=== PATIENT | female | born 1990 | race Caucasian/White ===

== ENCOUNTER 2017-03-22 21:12 | Emergency (ER) | payer SELFPAY ==
[2017-03-22 21:13] VITALS: BMI 29.6
[2017-03-22 23:06] VITALS: BP 121/80; PULSE 96; RESP 16; TEMP 99.2; O2SAT 99
[2017-03-22] MEDS ORDERED: Bacitracin 500 Units/gm Oint Foilpak UD ONE (23:10)
--- NOTE | 2017-03-22 23:17 | C.PDOC ---
History Of Present Illness 26 year old female presents to the ED with complaints of a loose nail after falling and injuring her left 4th finger nail yesterday. Patient denies any other area of trauma or complaints at this time. Time Seen by Provider: 03/22/17 21:59 Chief Complaint (Nursing): Upper Extremity Problem/Injury History Per: Patient History/Exam Limitations: no limitations Onset/Duration Of Symptoms: Hrs Current Symptoms Are (Timing): Still Present Past Medical History Reviewed: Historical Data, Nursing Documentation, Vital Signs Vital Signs: Last Vital Signs Temp 99.2 F 03/22/17 23:05 Pulse 96 H 03/22/17 23:05 Resp 16 03/22/17 23:05 BP 121/80 03/22/17 23:05 Pulse Ox 99 03/23/17 03:50 - [facility] Procedures EXTRACTION OF POC, LOW CERVICAL, OPEN APPROACH (12/06/16) LOW CERVICAL (03/13/15) Family History: States: No Known Family Hx - Social History Hx Tobacco Use: No Hx Alcohol Use: No Hx Substance Use: No - Immunization History Hx Tetanus Toxoid Vaccination: No Hx Influenza Vaccination: No Hx Pneumococcal Vaccination: No Review Of Systems Constitutional: Negative for: Fever, Chills Skin: Positive for: Other (loose 4th fingernail ). Negative for: Rash Physical Exam - Physical Exam Appears: Non-toxic, No Acute Distress Skin: Warm, Dry, No Rash, No Ecchymosis Head: Atraumatic Eye(s): bilateral: Normal Inspection Neck: Supple Gastrointestinal/Abdominal: No Distention Extremity: Normal ROM, No Tenderness, Capillary Refill (good capillary refill ) , No Deformity, Other (Lt 4th fingernail lose and deviated medially but attached at base and medial aspects) Neurological/Psych: Oriented x3 ED Course And Treatment O2 Sat by Pulse Oximetry: 99 (room air ) - Other Rad Left Hand X-Ray X-Ray: Viewed By Me, Read By Radiologist Interpretation: No fracture or dislocations to left hand Progress Note: Unable to clean or repair finger nail due to the patient's acrylic nail tip. Bacitracin dressing was applied to the finger and patient was instructed to keep finger clean and apply bacitracin and keep finger covered with a band aid Disposition Counseled Patient/Family Regarding: Diagnosis, Need For Followup - Disposition Referrals: Ailyn No MD [Provisional Staff] - Disposition: HOME/ ROUTINE Disposition Time: 23:13 Condition: STABLE Additional Instructions: Please apply bacitracin oint to finger Do not do any manicure to that finger Return to ER if worse Prescriptions: Cephalexin [cephalexin] 500 mg PO QID #20 cap Instructions: Nail Avulsion (ED) - Clinical Impression Clinical Impression: Nail avulsion, finger - Scribe Statement The provider has reviewed the documentation as recorded by the Scribmary grace Barnes All medical record entries made by the Madonnaibmary grace were at my direction and personally dictated by me. I have reviewed the chart and agree that the record accurately reflects my personal performance of the history, physical exam, medical decision making, and the department course for this patient. I have also personally directed, reviewed, and agree with the discharge instructions and disposition.
--- NOTE | 2017-03-23 13:24 | RAD ---
PROCEDURE: Left ring finger radiographs. HISTORY: pain distal left 2nd finger s/p fall COMPARISON: None. TECHNIQUE: AP radiograph of the left hand, as well as spot oblique and lateral images of left ring finger were obtained. FINDINGS: LEFT RING FINGER: Left ring finger normal, without fracture of focal lesion. Remainder of the left hand (as seen on the AP view) is grossly unremarkable. JOINTS: Normal. SOFT TISSUES: Normal. OTHER FINDINGS: None. IMPRESSION: No acute findings related to/accounting for the clinical presentation. Concordant results with the preliminary interpretation rendered by the emergency department physician procedure.
== END 2017-03-22 23:32 | disposition home or self-care (01) ==
LOC: C.ER 21:12
DX: S61.305A Unspecified open wound of left ring finger with damage to nail, initial encounter (principal); W19.XXXA Unspecified fall, initial encounter

== ENCOUNTER 2017-03-24 10:23 | Emergency (ER) | payer SELFPAY ==
[2017-03-24 10:24] VITALS: BMI 29.6
[2017-03-24 11:01] VITALS: BP 114/75; PULSE 74; RESP 18; TEMP 98; O2SAT 98
--- NOTE | 2017-03-24 11:36 | C.PDOC ---
History Of Present Illness 26 yo female c/o sore throat and pain with swallowing for 2 days. (+) body aches (+) fever (-) cough (-) congestion (-) SOB. Time Seen by Provider: 03/24/17 11:09 Chief Complaint (Nursing): ENT Problem History Per: Patient History/Exam Limitations: None Onset/Duration Of Symptoms: Days Current Symptoms Are (Timing): Still Present Quality (Mouth/Throat): Tenderness Past Medical History Vital Signs: Last Vital Signs Temp 98.0 F 03/24/17 10:57 Pulse 74 03/24/17 10:57 Resp 18 03/24/17 10:57 BP 114/75 03/24/17 10:57 Pulse Ox 98 03/24/17 11:36 - [facility] Procedures EXTRACTION OF POC, LOW CERVICAL, OPEN APPROACH (12/06/16) LOW CERVICAL (03/13/15) Family History: States: Unknown Family Hx - Social History Hx Tobacco Use: No Hx Alcohol Use: No Hx Substance Use: No - Immunization History Hx Tetanus Toxoid Vaccination: No Hx Influenza Vaccination: No Hx Pneumococcal Vaccination: No Review Of Systems Except As Marked, All Systems Reviewed And Found Negative. Constitutional: Positive for: Fever ENT: Positive for: Throat Pain Physical Exam - Physical Exam Appears: Well, Non-toxic, No Acute Distress Skin: Normal Color, Warm, Dry Head: Atraumatic, Normacephalic Eye(s): bilateral: Normal Inspection, PERRL, EOMI Ear(s): Bilateral: Normal Nose: Normal Oral Mucosa: Moist Throat: Erythema, Exudate, No Drooling, Other (uvula midline) Neck: Normal, Normal ROM, Supple Lymphatic: Adenopathy (cervical ) Chest: Symmetrical Cardiovascular: Rhythm Regular Respiratory: Normal Breath Sounds Back: Normal Inspection Extremity: Normal ROM Neurological/Psych: Oriented x3, Normal Speech ED Course And Treatment O2 Sat by Pulse Oximetry: 98 Progress Note: Instructed symptomatic treatment and out pt folow up with PMD in 1-2days. Isntructed to reutrn to ER if symptoms persit or worsen. Disposition - Disposition Referrals: [facility] [Outside] [facility] [Outside] Disposition: HOME/ ROUTINE Disposition Time: 11:34 Condition: STABLE Additional Instructions: Follow up with the clinic in 2-5 days for further evaluation. Take medications as prescribed. Return to the emergency department at any time if symptoms persist or worsen. You may call [facility] for any assistance . Prescriptions: Amoxicillin 875 mg PO BID #14 tablet Ibuprofen [Motrin] 600 mg PO Q6 PRN #20 tab PRN Reason: Pain, Mild (1-3) Mag&Al/Simet/Diphen/Lido [First Magic Mouthwash] 5 ml MM Q6 #1 kit Instructions: Pharyngitis (ED) - Clinical Impression Clinical Impression: Pharyngitis
== END 2017-03-24 11:40 | disposition home or self-care (01) ==
LOC: C.ER 10:23
DX: J02.9 Acute pharyngitis, unspecified (principal)

== ENCOUNTER 2017-08-13 10:45 | Emergency (ER) | payer OTHER, SELFPAY ==
[2017-08-13 10:46] VITALS: BMI 29.6
--- NOTE | 2017-08-13 11:37 | C.PDOC ---
History Of Present Illness 27 y/o female, with no significant PMHx, presents to ED for evaluation of lower abdominal, and back pain for the past week. Pt states that she recently had UTI. Denies fever, chills, n/v/d, dysuria, hematuria, frequency, or urinary retention. Notes she's breast feeding an 8month old child. No PMD Time Seen by Provider: 08/13/17 11:20 Chief Complaint (Nursing): Female Genitourinary History Per: Patient History/Exam Limitations: no limitations Onset/Duration Of Symptoms: Days Current Symptoms Are (Timing): Still Present Quality Of Discomfort: "Pain" Associated Symptoms: Back Pain. denies: Fever, Chills, Loss Of Appetite, Chest Pain, Constipation Alleviating Factors: None Recent travel outside of the [place]: No Additional History Per: Patient Past Medical History Reviewed: Historical Data, Nursing Documentation, Vital Signs Vital Signs: Last Vital Signs Temp 97.6 F 08/13/17 13:10 Pulse 65 08/13/17 13:10 Resp 18 08/13/17 13:10 BP 104/68 08/13/17 13:10 Pulse Ox 100 08/13/17 13:10 - [facility] Procedures EXTRACTION OF POC, LOW CERVICAL, OPEN APPROACH (12/06/16) LOW CERVICAL (03/13/15) Family History: States: Unknown Family Hx - Social History Hx Tobacco Use: No Hx Alcohol Use: No Hx Substance Use: No - Immunization History Hx Tetanus Toxoid Vaccination: No Hx Influenza Vaccination: No Hx Pneumococcal Vaccination: No Review Of Systems Except As Marked, All Systems Reviewed And Found Negative. Constitutional: Negative for: Fever, Chills Cardiovascular: Negative for: Chest Pain, Palpitations Respiratory: Negative for: Cough, Shortness of Breath Gastrointestinal: Positive for: Abdominal Pain. Negative for: Nausea, Vomiting , Diarrhea, Constipation Genitourinary: Negative for: Dysuria, Frequency, Hematuria, Vaginal Discharge Musculoskeletal: Positive for: Back Pain. Negative for: Neck Pain Neurological: Negative for: Weakness, Numbness Physical Exam - Physical Exam Appears: Non-toxic, No Acute Distress Skin: Warm, Dry, No Rash Head: Atraumatic, Normacephalic Eye(s): bilateral: Normal Inspection, EOMI Oral Mucosa: Moist Neck: Normal ROM, Supple Chest: Symmetrical Cardiovascular: Rhythm Regular, No Murmur Respiratory: Normal Breath Sounds, No Rales, No Rhonchi, No Wheezing Gastrointestinal/Abdominal: Soft, Tenderness (suprapubic), No Guarding, No Rebound Back: No CVA Tenderness, No Vertebral Tenderness, No Paraspinal Tenderness Extremity: Normal ROM, No Pedal Edema Extremity: Bilateral: Atraumatic Neurological/Psych: Oriented x3, Normal Speech, Normal Cognition ED Course And Treatment - Laboratory Results Result Diagrams: 08/13/17 11:44 08/13/17 11:44 Lab Interpretation: Normal Urine POC: Negative O2 Sat by Pulse Oximetry: 98 (RA) Pulse Ox Interpretation: Normal Progress Note: Blood work, UA ordered and reviewed. Patient was given Motrin for pain. Treated with macrobid 100 mg PO Reassessment Condition: Improved Medical Decision Making Medical Decision Making: On re-evaluation abdomen soft, in no distress lungs clear Disposition Counseled Patient/Family Regarding: Studies Performed, Diagnosis, Need For Followup, Rx Given - Disposition Referrals: [facility] [Outside] [facility] [Outside] Disposition: HOME/ ROUTINE Disposition Time: 12:30 Condition: STABLE Additional Instructions: Return to ED if any increase symptoms Prescriptions: Nitrofurantoin Macrocrystals [Macrobid] 1 cap PO BID #14 cap Instructions: Urinary Tract Infection in Women (ED) Forms: [facility] (Turkish) Print Language: TAMAZIGHT - Clinical Impression Clinical Impression: UTI (urinary tract infection) - PA / SUPERINTENDENT STEVEDORING / Resident Statement MD/DO has reviewed & agrees with the documentation as recorded. - Scribe Statement The provider has reviewed the documentation as recorded by the Hayden Wilkerson All medical record entries made by the Hayden were at my direction and personally dictated by me. I have reviewed the chart and agree that the record accurately reflects my personal performance of the history, physical exam, medical decision making, and the department course for this patient. I have also personally directed, reviewed, and agree with the discharge instructions and disposition.
[2017-08-13 11:48] LABS: BASO % 0.5 % (0.0-2.0); EOS # 0.2 K/uL (0.0-0.7); EOS % 2.1 % (0.0-4.0); HEMATOCRIT 38.8 % (34.0-47.0); LYMPH # 1.9 K/uL (1.0-4.3); LYMPH % 24.2 % (20.0-40.0); MEAN CORPUSCULAR HEMOGLOBIN 29.4 pg (27.0-31.0); MEAN CORPUSCULAR HGB CONC 34.2 g/dL (33.0-37.0); MEAN PLATELET VOLUME 9.3 fL (7.2-11.7); MONO # 0.5 K/uL (0.0-0.8); MONO % 6.5 % (0.0-10.0); RED CELL DISTRIBUTION WIDTH 13.3 % (11.5-14.5); WHITE BLOOD COUNT 7.8 K/uL (4.8-10.8)
[2017-08-13 11:59] LABS: CHLORIDE 100 mmol/L (98-107); POTASSIUM 3.7 mmol/L (3.6-5.2); SODIUM 140 mmol/L (132-148)
[2017-08-13 11:59] LABS: RBC URINE 1 /hpf (0-3); URINE BACTERIA RARE (<OCC); URINE BILIRUBIN NEGATIVE (NEGATIVE); URINE BLOOD 2+ (NEGATIVE); URINE COLOR Yellow (YELLOW); URINE GLUCOSE (UA) NORMAL (Normal); URINE KETONE NEGATIVE (NEGATIVE); URINE LEUKOCYTE ESTERASE 3+ Leu/uL (Negative); URINE PROTEIN NEGATIVE (NEGATIVE); URINE UROBILINOGEN NORMAL mg/dL (0.2-1.0); WBC URINE 58 /hpf (0-5)
[2017-08-13 12:01] LABS: BILIRUBIN,TOTAL 0.7 mg/dL (0.2-1.3); GFR AFRICAN-AMERICAN > 60
[2017-08-13 12:02] LABS: ALB/GLOB RATIO 1.4 (1.0-2.1); ALKALINE PHOSPHATASE 56 U/L (38-126); ALT/SGPT 23 U/L (9-52); AST/SGOT 22 U/L (14-36); BLOOD UREA NITROGEN 13 mg/dL (7-17); CALCIUM 8.9 mg/dl (8.6-10.4); CARBON DIOXIDE 25 mmol/L (22-30); GLUCOSE,RANDOM 78 mg/dL (65-105); TOTAL PROTEIN 7.5 g/dL (6.3-8.3)
[2017-08-13 13:11] VITALS: BP 104/68; PULSE 65; RESP 18; TEMP 97.6
[2017-08-13 13:20] VITALS: O2SAT 98
== END 2017-08-13 13:29 | disposition home or self-care (01) ==
LOC: C.ER 10:45
DX: N39.0 Urinary tract infection, site not specified (principal)

== ENCOUNTER 2017-09-12 10:48 | Emergency (ER) | payer OTHER ==
[2017-09-12 10:49] VITALS: BMI 29.6
[2017-09-12 10:59] VITALS: RESP 18; O2SAT 99
[2017-09-12] MEDS ORDERED: Sodium Chloride 0.9% 1,000 ML IV ONE (11:18)
[2017-09-12] MEDS ORDERED: Sodium Chloride 0.9% 1,000 ML ONE (11:35)
--- NOTE | 2017-09-12 11:36 | C.PDOC ---
History Of Present Illness Patient is a 27 year old female presents to Emergency Department for evaluation of fever, chills, cough, body aches, and generalized weakness for the past 4 days. Reports nausea, mild lower abdominal pain, lower back pain. Patient also complains of pain and redness to right breast, states she is feeding a 9 month old daughter, especially feeding more from the right breast. Denies sick contact , dysuria, hematuria, vomiting, diarrhea, shortness of breath, or chest pain. Time Seen by Provider: 09/12/17 11:04 Chief Complaint (Nursing): Flu-like Symptoms History Per: Patient History/Exam Limitations: no limitations Onset/Duration Of Symptoms: Days (4) Current Symptoms Are (Timing): Still Present Location Of Pain: Diffuse Myalgias Associated Symptoms: Fever, Chills, Cough, Myalgias, Nausea. denies: Sore Throat, Sputum, Neck Pain, Sinus Drainage, Nasal Congestion, Vomiting, Diarrhea Ear Symptoms: Bilateral: None Recent travel outside of the [place]: No Additional History Per: Patient Past Medical History Reviewed: Historical Data, Nursing Documentation, Vital Signs Vital Signs: Last Vital Signs Temp 98.5 F 09/12/17 13:09 Pulse 67 09/12/17 13:09 Resp 18 09/12/17 13:09 BP 114/79 09/12/17 13:09 Pulse Ox 99 09/12/17 13:09 - Medical History PMH: No Chronic Diseases Surgical History: - [facility] Procedures EXTRACTION OF POC, LOW CERVICAL, OPEN APPROACH (12/06/16) LOW CERVICAL (03/13/15) Family History: States: Unknown Family Hx - Social History Hx Tobacco Use: No Hx Alcohol Use: No Hx Substance Use: No - Immunization History Hx Tetanus Toxoid Vaccination: No Hx Influenza Vaccination: No Hx Pneumococcal Vaccination: No Review Of Systems Except As Marked, All Systems Reviewed And Found Negative. Constitutional: Positive for: Fever, Chills, Weakness (body aches) ENT: Negative for: Ear Pain, Nose Discharge, Nose Congestion, Throat Pain Cardiovascular: Negative for: Chest Pain, Palpitations, Light Headedness Respiratory: Positive for: Cough. Negative for: Shortness of Breath Gastrointestinal: Positive for: Nausea, Abdominal Pain (mild lower). Negative for: Vomiting, Diarrhea, Constipation Genitourinary: Negative for: Dysuria, Frequency, Hematuria Musculoskeletal: Positive for: Back Pain (mild lower), Other (right breast pain) Skin: Negative for: Rash, Bruising Neurological: Negative for: Weakness, Numbness, Headache, Dizziness Physical Exam - Physical Exam Appears: Non-toxic, No Acute Distress Skin: Normal Color, Warm, Dry Head: Atraumatic, Normacephalic Eye(s): bilateral: Normal Inspection, EOMI Oral Mucosa: Moist Neck: Normal ROM, Supple Chest: Symmetrical, No Deformity, Tenderness (mild tenderness and redness to right outer quadrant of right breast, warm to touch. No masses, no bleeding, no skin dimpling), No Ecchymosis Cardiovascular: Rhythm Regular, No Murmur Respiratory: Normal Breath Sounds, No Rales, No Rhonchi, No Wheezing Gastrointestinal/Abdominal: Soft, No Tenderness Back: Normal Inspection, No CVA Tenderness Extremity: Normal ROM, No Pedal Edema, No Deformity Neurological/Psych: Oriented x3, Normal Speech Gait: Steady ED Course And Treatment O2 Sat by Pulse Oximetry: 99 (RA) Pulse Ox Interpretation: Normal - Radiology CXR: Interpreted by Me, Viewed By Me CXR Interpretation: Yes: No Acute Disease Medical Decision Making Medical Decision Making: Plan: * Influenza AB * Urinalysis * Urine culture Patient asking for IV fluids, feels tired and out of energy. IV NS given. Progress note: Flu and UA negative. On reevaluation, patient has no fever and reports feeling better. Discussed results. Patient feels comfortable going home and will be discharged. Patient given follow up instructions. Instructed to return to ER if symptoms worsen or new symptoms arise. Disposition Counseled Patient/Family Regarding: Diagnosis, Need For Followup, Rx Given - Disposition Disposition: HOME/ ROUTINE Disposition Time: 12:11 Condition: STABLE Additional Instructions: Your prescription was sent to the pharmacy may continue and take ibuprofen for any pain Follow up with your primary medical doctor or clinic in 2-5 days for further evaluation. Return to the emergency department at any time if symptoms persist or worsen. Prescriptions: Amoxicillin/Clavulanate [Augmentin 875 MG-125 MG] 1 tab PO BID #14 tab Instructions: Mastitis (ED) Forms: [facility] (Macedonian), School Excuse - POA Present On Arrival: None - Clinical Impression Clinical Impression: Influenza-like illness, Mastitis - PA / SCHOOL BUS DRIVER/MECHANIC / Resident Statement MD/DO has reviewed & agrees with the documentation as recorded. - Scribe Statement The provider has reviewed the documentation as recorded by the Scribe Chris Wilkerson All medical record entries made by the Madonnaibe were at my direction and personally dictated by me. I have reviewed the chart and agree that the record accurately reflects my personal performance of the history, physical exam, medical decision making, and the department course for this patient. I have also personally directed, reviewed, and agree with the discharge instructions and disposition.
[2017-09-12 11:47] LABS: URINE BILIRUBIN NEGATIVE (NEGATIVE); URINE BLOOD 1+ (NEGATIVE); URINE COLOR Yellow (YELLOW); URINE GLUCOSE (UA) NORMAL (Normal); URINE KETONE NEGATIVE (NEGATIVE); URINE LEUKOCYTE ESTERASE NEG Leu/uL (Negative); URINE PROTEIN NEGATIVE (NEGATIVE); URINE UROBILINOGEN NORMAL mg/dL (0.2-1.0); WBC URINE < 1 /hpf (0-5)
[2017-09-12 11:53] LABS: RBC URINE 8 /hpf (0-3)
[2017-09-12 13:10] VITALS: BP 114/79; PULSE 67; TEMP 98.5
== END 2017-09-12 13:11 | disposition home or self-care (01) ==
LOC: C.ER 10:48
DX: J11.1 Influenza due to unidentified influenza virus with other respiratory manifestations (principal); N61.0 Mastitis without abscess
CPT/HCPCS: 81001; 84703; 87086; 87804; 96360; 99284; J7040